=== PATIENT | female | born 1985 | race Caucasian/White ===

== ENCOUNTER 2016-09-28 07:59 | Emergency (ER) | payer SELFPAY ==
[2016-09-28] MEDS ORDERED: TETRACAINE HCL 0.5% OPH SOLN 2 ML OD ONE (10:00)
[2016-09-28] MEDS ORDERED: LORAZEPAM 1 MG TABLET PO ONE (10:25)
--- NOTE | 2016-09-28 12:09 | ER Document Report ---
ED Eye Complaint - General Chief Complaint: Eye Problem Stated Complaint: HEADACHE Time seen by provider: 12:04 Mode of Arrival: Ambulatory Information source: Patient Notes: 31 yo female non contact lense weared c/o right eye reddness she noticed this morning and a throbbin right frontal headache for 3 days that has been intermittent. Blurred vision to right eye this morning also. No hx htn, migraines. gradual onset of headaches, denies preganancy. 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 TRAVEL OUTSIDE OF THE [place] IN LAST 30 DAYS: No - Related Data Allergies/Adverse Reactions: Penicillins Allergy (Verified 09/28/16 08:11) Past Medical History - General Information source: Patient - Social History Smoking Status: Never Smoker Chew tobacco use (# tins/day): No Frequency of alcohol use: Social Drug Abuse: None Lives with: Spouse/Significant other Family History: Reviewed & Not Pertinent Patient has suicidal ideation: No Patient has homicidal ideation: No Renal/ Medical History: Denies: Hx Peritoneal Dialysis Psychiatric Medical History: Reports: Hx Anxiety Surgical Hx: Negative Review of Systems - Review of Systems Constitutional: No symptoms reported EENT: See HPI Cardiovascular: No symptoms reported Respiratory: No symptoms reported Gastrointestinal: No symptoms reported Genitourinary: No symptoms reported Female Genitourinary: No symptoms reported Musculoskeletal: No symptoms reported Skin: No symptoms reported Hematologic/Lymphatic: No symptoms reported Neurological/Psychological: See HPI Physical Exam - Vital signs Vitals: Temp Pulse Resp BP Pulse Ox 98.5 F 77 20 137/70 H 96 09/28/16 08:07 09/28/16 08:07 09/28/16 08:07 09/28/16 08:07 09/28/16 08:07 Interpretation: Normal - General General appearance: Appears well, Alert, Anxious - HEENT Head: Normocephalic, Atraumatic Eyes: Normal Conjunctiva: Other - subconjunctival hemorrhage medial right eye. no fb, no fluorescein uptake, pressure 14.95 (normal), opthalmic exam normal Cornea: No: Corneal abrasion, Embedded foreign body, Flourescein stain uptake, Opacified, Superficial foreign body Pupils: PERRL Visual acuity- Right eye: 20/50 Visual acuity- Left eye: 20/25 Visual acuity- Both eyes: 20/25 Corrective lenses worn: No Nerve palsy: No Tympanic membrane: Normal Mouth/Lips: Normal Mucous membranes: Normal Pharynx: Normal Neck: Normal, Supple. No: Lymphadenopathy - Respiratory Respiratory status: No respiratory distress Chest status: Nontender Breath sounds: Normal Chest palpation: Normal - Cardiovascular Rhythm: Regular Heart sounds: Normal auscultation Murmur: No - Abdominal Inspection: Normal Distension: No distension Bowel sounds: Normal Tenderness: Nontender Organomegaly: No organomegaly - Back Back: Normal, Nontender - Extremities General upper extremity: Normal inspection, Nontender, Normal color, Normal ROM , Normal temperature General lower extremity: Normal inspection, Nontender, Normal color, Normal ROM , Normal temperature, Normal weight bearing. No: Yumi's sign - Neurological Neuro grossly intact: Yes Cognition: Normal Orientation: AAOx4 [place] Coma Scale Eye Opening: Spontaneous [place] Coma Scale Verbal: Oriented Elvis Coma Scale Motor: Obeys Commands Elvis Coma Scale Total: 15 Speech: Normal Motor strength normal: LUE, RUE, LLE, RLE Sensory: Normal - Psychological Associated symptoms: Normal affect, Normal mood - Skin Skin Temperature: Warm Skin Moisture: Dry Skin Color: Normal Course - Re-evaluation Re-evalutation: 09/28/16 12:[address] is negative 09/28/16 12:05 right eye 20/50. left eye 20/25 09/28/16 12:06 Headache is better 09/28/16 12:[address] leija for disposition, ok to see eye doctor on saturday - Vital Signs Vital signs: Temp Pulse Resp BP Pulse Ox 97.6 F 71 20 124/70 100 09/28/16 12:08 09/28/16 12:08 09/28/16 08:07 09/28/16 12:08 09/28/16 12:08 Discharge - Discharge Clinical Impression: right eye sub Conjunctival hemorrhage, Anxiety Headache Qualifiers: Headache type: unspecified Headache chronicity pattern: episodic headache Intractability: not intractable Qualified Code(s): R51 - Headache Condition: Good Disposition: HOME, SELF-CARE Instructions: Subconjunctival Hemorrhage ([facility]), Headache ([facility]), Anxiety ([facility]), Dizziness ([facility]) Additional Instructions: to er if worse this weekend call and schedule opthamology appointment and neurology appointment rest Please complete the patient satisfaction survey if you get one, and return it.. If you do not receive a survey, then you can go to the [facility] website, [email or web address] and place your comments about your very good care. Thank you very much. It was a pleasure being your medical provider today. Forms: Return to Work Referrals: SUSHANT MCNEAL MD [ACTIVE STAFF] - Follow up as needed ERICKSON VALENTINO MD [ACTIVE STAFF] - Follow up as needed
[2016-09-28 12:10] VITALS: BP 124/70
== END 2016-09-28 12:15 | disposition home or self-care (01) ==
LOC: ER 07:59
DX: H11.31 Conjunctival hemorrhage, right eye (principal); R51 Headache; H53.8 Other visual disturbances; H53.149 Visual discomfort, unspecified; F41.9 Anxiety disorder, unspecified
CPT/HCPCS: 70450; 99284

== ENCOUNTER 2016-11-14 23:27 | Emergency (ER) | payer SELFPAY | END 2016-11-15 01:08 | disposition left against medical advice (07) | LOC: ER 23:27 | DX: Z53.21 Procedure and treatment not carried out due to patient leaving prior to being seen by health care provider (principal) ==

== ENCOUNTER 2017-01-12 18:41 | Emergency (ER) | payer SELFPAY ==
[2017-01-12] MEDS ORDERED: NORMAL SALINE 1000 ML 1,000 ML IV ONE (19:04)
[2017-01-12] MEDS ORDERED: LORAZEPAM INJ 2 MG/1 ML VIAL IV ONE (19:04)
--- NOTE | 2017-01-12 19:06 | ER Document Report ---
ED Medical Screen (RME) - General Chief Complaint: Weakness Stated Complaint: WEAKNESS Time Seen by Provider: 01/12/17 19:04 Mode of Arrival: Wheelchair Information source: Patient TRAVEL OUTSIDE OF THE [place] IN LAST 30 DAYS: No - HPI Patient complains to provider of: weakness Onset: This afternoon - Pt has h/o panic attacks took a new wt. loss pill (otc) called "Ripped" -- got very shaky and weak this afternoon with near syncope - Related Data Allergies/Adverse Reactions: Penicillins Allergy (Verified 01/12/17 18:47) Past Medical History Renal/ Medical History: Denies: Hx Peritoneal Dialysis Psychiatric Medical History: Reports: Hx Anxiety Physical Exam - Vital signs Vitals: Temp Pulse Resp BP Pulse Ox 98.3 F 77 18 139/97 H 100 01/12/17 18:46 01/12/17 18:46 01/12/17 18:46 01/12/17 18:46 01/12/17 18:46 Course - Vital Signs Vital signs: Temp Pulse Resp BP Pulse Ox 98.3 F 77 18 139/97 H 100 01/12/17 18:46 01/12/17 18:46 01/12/17 18:46 01/12/17 18:46 01/12/17 18:46
[2017-01-12 19:30] LABS: ABSOLUTE BASOPHILS # (AUTO) 0.1 10^3/uL (0.0-0.2); ABSOLUTE EOSINOPHILS # (AUTO) 0.1 10^3/uL (0.0-0.6); ABSOLUTE LYMPHOCYTES (AUTO) 3.6 10^3/uL (0.5-4.7); ABSOLUTE MONOCYTES (AUTO) 0.6 10^3/uL (0.1-1.4); BASOPHILS % (AUTO) 0.7 % (0-2); EOSINOPHILS % (AUTO) 1.4 % (0-6); HEMATOCRIT 38.6 % (36.0-47.0); HEMOGLOBIN 12.6 g/dL (12.0-15.5); HGB HCT DIFFERENCE -0.8; LYMPHOCYTES % (AUTO) 34.8 % (13-45); MEAN CORPUSCULAR HEMOGLOBIN 26.6 pg (27.0-33.4); MEAN CORPUSCULAR HGB CONC 32.7 g/dL (32.0-36.0); MEAN CORPUSCULAR VOLUME 81 fl (80-97); RED BLOOD COUNT 4.74 10^6/uL (3.72-5.28); RED CELL DISTRIBUTION WIDTH 15.2 % (11.5-14.0); SEGMENTED NEUTROPHILS % (AUTO) 57.1 % (42-78); WHITE BLOOD COUNT 10.5 10^3/uL (4.0-10.5)
[2017-01-12 19:52] LABS: ALANINE AMINOTRANSFERASE 31 U/L (9-52); ALBUMIN 4.3 g/dL (3.5-5.0); ALKALINE PHOSPHATASE 85 U/L (38-126); ANION GAP 11 (5-19); ASPARTATE AMINO TRANSFERASE 25 U/L (14-36); BILIRUBIN,DIRECT 0.3 mg/dL (0.0-0.4); BILIRUBIN,TOTAL 0.5 mg/dL (0.2-1.3); BLOOD UREA NITROGEN 13 mg/dL (7-20); CALCIUM 9.8 mg/dL (8.4-10.2); CARBON DIOXIDE 26 mmol/L (22-30); CHLORIDE 102 mmol/L (98-107); CREATININE RESULT 0.89 mg/dL (0.52-1.25); GLUCOSE 85 mg/dL (75-110); SODIUM 138.7 mmol/L (137-145); TOTAL PROTEIN 7.9 g/dL (6.3-8.2)
[2017-01-12 20:53] LABS: APPEARANCE,URINE CLEAR; BILIRUBIN,URINE NEGATIVE (NEGATIVE); GLUCOSE, URINE NEGATIVE (NEGATIVE); KETONES,URINE TRACE mg/dL (NEGATIVE); LEUKOCYTE ESTERASE,URINE NEGATIVE (NEGATIVE); NITRITE,URINE NEGATIVE (NEGATIVE); PROTEIN,URINE NEGATIVE (NEGATIVE); URINE SPECIFIC GRAVITY 1.005; UROBILINOGEN,URINE NEGATIVE mg/dL (<2.0)
--- NOTE | 2017-01-12 21:47 | ER Document Report ---
ED General - General Chief Complaint: Weakness Stated Complaint: WEAKNESS Time Seen by Provider: 01/12/17 19:04 Mode of Arrival: Wheelchair Notes: Patient is a 31-year-old female with past medical history of morbid obesity, anxiety and depression who presents after feeling weak, somewhat panicked while at work today. Patient states that she is concerned this may be related to a new medicine that she has begun taking [id number] for weight loss. At time of my assessment she states that her symptoms have now resolved after receiving IV lorazepam prior to my assessment. States she has had similar symptoms in the past with panic attacks. She notes that she felt "floppy and lightheaded" earlier but denies these symptoms at this time. Nothing apparently triggered her symptoms although she does admit that she has not eaten anything all day. She has not seen her primary care doctor regarding today's concerns. TRAVEL OUTSIDE OF THE [place] IN LAST 30 DAYS: No - Related Data Allergies/Adverse Reactions: Penicillins Allergy (Verified 01/12/17 18:47) Past Medical History - General Information source: Patient - Social History Smoking Status: Never Smoker Chew tobacco use (# tins/day): No Frequency of alcohol use: None Drug Abuse: None Lives with: Spouse/Significant other Family History: Reviewed & Not Pertinent Patient has suicidal ideation: No Patient has homicidal ideation: No Renal/ Medical History: Denies: Hx Peritoneal Dialysis Psychiatric Medical History: Reports: Hx Anxiety, Hx Depression - anxiety Past Surgical History: Reports: Hx Section, Hx Cholecystectomy Review of Systems - Review of Systems Notes: Constitutional: Negative for fever. HENT: Negative for sore throat. Eyes: Negative for visual changes. Cardiovascular: Negative for chest pain. Respiratory: Negative for shortness of breath. Gastrointestinal: Negative for abdominal pain, vomiting or diarrhea. Genitourinary: Negative for dysuria. Musculoskeletal: Negative for back pain. Skin: Negative for rash. Neurological: Negative for headaches, weakness or numbness. 10 point ROS negative except as marked above and in HPI. Physical Exam - Vital signs Vitals: Temp Pulse Resp BP Pulse Ox 98.3 F 77 18 139/97 H 100 01/12/17 18:46 01/12/17 18:46 01/12/17 18:46 01/12/17 18:46 01/12/17 18:46 Interpretation: Normal Notes: PHYSICAL EXAMINATION: GENERAL: Well-appearing, well-nourished and in no acute distress. HEAD: Atraumatic, normocephalic. EYES: Pupils equal round and reactive to light, extraocular movements intact, sclera anicteric, conjunctiva are normal. ENT: nares patent, oropharynx clear without exudates. Moist mucous membranes. NECK: Normal range of motion, supple without lymphadenopathy LUNGS: Breath sounds clear to auscultation bilaterally and equal. No wheezes rales or rhonchi. HEART: Regular rate and rhythm without murmurs ABDOMEN: Soft, nontender, normoactive bowel sounds. No guarding, no rebound. No masses appreciated. EXTREMITIES: Normal range of motion, no pitting or edema. No cyanosis. NEUROLOGICAL: No focal neurological deficits. Moves all extremities spontaneously and on command. PSYCH: Normal mood, normal affect. SKIN: Warm, Dry, normal turgor, no rashes or lesions noted. Course - Re-evaluation Re-evalutation: 01/12/17 21:45 Patient presents with multiple vague complaints that did not appear to be concerning for any acute life-threatening pathology. Appears that her symptoms are likely related to not eating all day. Vitals are within normal limits at triage and at time of discharge. Physical examination is unremarkable. Patient has tolerated oral intake without difficulty. Patient was not noted to be in distress at any point during their ER visit. At this time, based on the reassuring evaluation, I do not suspect an acute MS, pulmonary embolus, aortic dissection, acute intra-abdominal pathology, stroke, or sepsis.Will discharge with return precautions and follow-up recommendations. Verbal discharge instructions given a the bedside and opportunity for questions given. Medication warnings reviewed. Patient is in agreement with this plan and has verbalized understanding of return precautions and the need for primary care follow-up in the next 24-72 hours. - Vital Signs Vital signs: Temp Pulse Resp BP Pulse Ox 98.4 F 69 17 128/79 H 97 01/12/17 21:51 01/12/17 21:51 01/12/17 21:51 01/12/17 21:51 01/12/17 21:51 - Laboratory Result Diagrams: 01/12/17 19:20 01/12/17 19:20 Laboratory results interpreted by me: 01/12/17 01/12/17 19:20 20:37 MCH 26.6 L RDW 15.2 H Urine Ketones TRACE H Urine Blood SMALL H Discharge - Discharge Clinical Impression: Dehydration, Lightheadedness Condition: Good Disposition: HOME, SELF-CARE Additional Instructions: Please return to the emergency room immediately if you experience any concerning symptoms including high fevers, severe headache, chest pain, difficulty breathing, abdominal pain, slurred speech, numbness or weakness in your arms or legs, or any other symptom that concerns you. Forms: Parent Work Note, Return to Work
[2017-01-12 21:56] VITALS: BP 128/79
--- NOTE | 2017-01-13 09:54 | EKG REPORT ---
SEVERITY:- NORMAL ECG - SINUS RHYTHM : Confirmed by: Raymon Londono MD 13-Jan-2017 09:53:42
== END 2017-01-12 22:04 | disposition home or self-care (01) ==
LOC: ER 18:41
DX: E86.0 Dehydration (principal); R42 Dizziness and giddiness; R53.1 Weakness; E66.01 Morbid (severe) obesity due to excess calories; Z68.41 Body mass index [BMI] 40.0-44.9, adult; F41.9 Anxiety disorder, unspecified; Z88.0 Allergy status to penicillin
CPT/HCPCS: 93005; 99285; 96360; 36415; 85025; 81025; 80053; 81001; 93010; J7030

== ENCOUNTER 2017-08-07 09:15 | Emergency (ER) | payer BC ==
[2017-08-07] MEDS ORDERED: NORMAL SALINE 1000 ML 1,000 ML IV ONE ×2 (10:13→12:24)
[2017-08-07] MEDS ORDERED: ONDANSETRON HCL INJ/PF 4 MG/2 ML SDV IV ONE (10:13)
[2017-08-07] MEDS ORDERED: MORPHINE SULFATE 10 MG/ML INJ IV ONE ×2 (10:14→11:29)
[2017-08-07 10:52] LABS: ABSOLUTE BASOPHILS # (AUTO) 0.1 10^3/uL (0.0-0.2); ABSOLUTE EOSINOPHILS # (AUTO) 0.1 10^3/uL (0.0-0.6); ABSOLUTE LYMPHOCYTES (AUTO) 2.8 10^3/uL (0.5-4.7); ABSOLUTE MONOCYTES (AUTO) 0.5 10^3/uL (0.1-1.4); ABSOLUTE NEUT (AUTO) 6.1 10^3/uL (1.7-8.2); EOSINOPHILS % (AUTO) 1.2 % (0-6); HEMOGLOBIN 13.5 g/dL (12.0-15.5); LYMPHOCYTES % (AUTO) 29.3 % (13-45); MEAN CORPUSCULAR HEMOGLOBIN 27.2 pg (27.0-33.4); MEAN CORPUSCULAR HGB CONC 32.8 g/dL (32.0-36.0); MEAN CORPUSCULAR VOLUME 83 fl (80-97); MONOCYTES % (AUTO) 5.4 % (3-13); PLATELET COUNT 252 10^3/uL (150-450); RED BLOOD COUNT 4.95 10^6/uL (3.72-5.28); RED CELL DISTRIBUTION WIDTH 15.3 % (11.5-14.0); SEGMENTED NEUTROPHILS % (AUTO) 63.1 % (42-78); TOTAL CELLS COUNTED % (AUTO) 100 %; WHITE BLOOD COUNT 9.6 10^3/uL (4.0-10.5)
[2017-08-07 10:54] LABS: APPEARANCE,URINE SLIGHTLY-CLOUDY; BILIRUBIN,URINE NEGATIVE (NEGATIVE); COLOR,URINE YELLOW; GLUCOSE, URINE NEGATIVE (NEGATIVE); KETONES,URINE NEGATIVE (NEGATIVE); LEUKOCYTE ESTERASE,URINE NEGATIVE (NEGATIVE); NITRITE,URINE NEGATIVE (NEGATIVE); PROTEIN,URINE NEGATIVE (NEGATIVE); URINE SPECIFIC GRAVITY 1.025; UROBILINOGEN,URINE NEGATIVE mg/dL (<2.0)
--- NOTE | 2017-08-07 11:41 | RADIOLOGY REPORT (SQ) ---
EXAM DESCRIPTION: U/S ABDOMEN LIMITED W/O DOP COMPLETED DATE/TIME: 08/07/2017 11:33 am REASON FOR STUDY: ruq pain/ r/o cbd COMPARISON: None. TECHNIQUE: Dynamic and static grayscale images acquired of the abdomen and recorded on PACS. Additio nal selected color Doppler and spectral images recorded. LIMITATIONS: None. FINDINGS: PANCREAS: No masses. Visualized pancreatic duct normal caliber. LIVER: No masses. Echotexture normal. LIVER VASCULATURE: Normal blood flow is identified in the portal vein. GALLBLADDER: No stones. Normal wall thickness. No pericholecystic fluid. ULTRASOUND-DETECTED SWAIN'S SIGN: Negative. INTRAHEPATIC DUCTS AND COMMON DUCT: CBD and intrahepatic ducts normal caliber. No filling defects. INFERIOR VENA CAVA: Normal flow. AORTA: No aneurysm. RIGHT KIDNEY: 9.8 cm in length. Normal echogenicity. No solid or suspicious masses. No hydrone phrosis. No calcifications. PERITONEAL AND RIGHT PLEURAL SPACE: No ascites or effusions. OTHER: No other significant findings. IMPRESSION: NORMAL RIGHT UPPER QUADRANT ULTRASOUND. TECHNICAL DOCUMENTATION: JOB ID: [id number] [employer]- All Rights Reserved
[2017-08-07] MEDS ORDERED: HYDROMORPHONE HCL INJ/PF 2 MG/ML AMPULE IV ONE (12:04)
[2017-08-07 12:20] LABS: ALANINE AMINOTRANSFERASE 16 U/L (9-52); ALBUMIN 3.8 g/dL (3.5-5.0); ALKALINE PHOSPHATASE 60 U/L (38-126); ANION GAP 8 (5-19); ASPARTATE AMINO TRANSFERASE 13 U/L (14-36); BILIRUBIN,DIRECT 0.1 mg/dL (0.0-0.4); BILIRUBIN,TOTAL 0.2 mg/dL (0.2-1.3); BLOOD UREA NITROGEN 11 mg/dL (7-20); CALCIUM 8.9 mg/dL (8.4-10.2); CARBON DIOXIDE 27 mmol/L (22-30); CHLORIDE 107 mmol/L (98-107); GLUCOSE 83 mg/dL (75-110); LIPASE 88.4 U/L (23-300); POTASSIUM 4.2 mmol/L (3.6-5.0); TOTAL PROTEIN 6.8 g/dL (6.3-8.2)
--- NOTE | 2017-08-07 12:29 | ER Document Report ---
ED General - General Chief Complaint: Abdominal Pain Stated Complaint: ABDOMINAL PAIN Time Seen by Provider: 08/07/17 10:12 TRAVEL OUTSIDE OF THE [place] IN LAST 30 DAYS: No - HPI Patient complains to provider of: Right upper quadrant abdominal pain Onset: Just prior to arrival Onset/Duration: Intermittent - Morbidly obese 31-year-old female presents with right upper quadrant pain. Patient is status post cholecystectomy. Pain was so bad it made her throw up. All started this morning. States she has never had pain like this before. Denies fever chills or trauma to her abdomen. - Related Data Allergies/Adverse Reactions: Penicillins Allergy (Verified 08/07/17 09:16) Past Medical History - Social History Smoking Status: Never Smoker Chew tobacco use (# tins/day): No Frequency of alcohol use: None Drug Abuse: None Family History: Reviewed & Not Pertinent Patient has suicidal ideation: No Patient has homicidal ideation: No Renal/ Medical History: Denies: Hx Peritoneal Dialysis Psychiatric Medical History: Reports: Hx Anxiety, Hx Depression - anxiety Past Surgical History: Reports: Hx Section, Hx Cholecystectomy Review of Systems - Review of Systems Constitutional: No symptoms reported EENT: No symptoms reported Cardiovascular: No symptoms reported Respiratory: No symptoms reported Gastrointestinal: Abdominal pain, Nausea Genitourinary: No symptoms reported Female Genitourinary: No symptoms reported Musculoskeletal: No symptoms reported Skin: No symptoms reported Hematologic/Lymphatic: No symptoms reported Neurological/Psychological: No symptoms reported Physical Exam - Vital signs Vitals: Temp Pulse BP Pulse Ox 98.7 F 57 L 112/72 97 08/07/17 09:41 08/07/17 09:41 08/07/17 09:41 08/07/17 09:41 Interpretation: Normal - General General appearance: Appears well, Alert - HEENT Head: Normocephalic, Atraumatic Eyes: Normal Pupils: PERRL - Respiratory Respiratory status: No respiratory distress Chest status: Nontender Breath sounds: Normal Chest palpation: Normal - Cardiovascular Rhythm: Regular Heart sounds: Normal auscultation Murmur: No - Abdominal Inspection: Normal Distension: No distension Bowel sounds: Normal Tenderness: Tender. No: McBurney's point, Brito's sign Organomegaly: No organomegaly - Back Back: Normal, Nontender - Extremities General upper extremity: Normal inspection, Nontender, Normal color, Normal ROM , Normal temperature General lower extremity: Normal inspection, Nontender, Normal color, Normal ROM , Normal temperature, Normal weight bearing. No: Yumi's sign - Neurological Neuro grossly intact: Yes Cognition: Normal Orientation: AAOx4 [place] Coma Scale Eye Opening: Spontaneous Elvis Coma Scale Verbal: Oriented [place] Coma Scale Motor: Obeys Commands [place] Coma Scale Total: 15 Speech: Normal Motor strength normal: LUE, RUE, LLE, RLE Sensory: Normal - Psychological Associated symptoms: Normal affect, Normal mood - Skin Skin Temperature: Warm Skin Moisture: Dry Skin Color: Normal Course - Re-evaluation Re-evalutation: 08/07/17 14:10 Well-appearing female presents with right upper quadrant abdominal pain. Given IV opioid therapy feeling much improved. Reassuring physical exam. Extensive lab workup including ultrasound, CAT scan of the pelvis, chest x-ray, EKG, troponins and labs all within normal limits. Patient be discharged home follow-up with PCP return if anything changes given prescription for oral opioid therapy. - Vital Signs Vital signs: Temp Pulse Resp BP Pulse Ox 98.7 F 57 L 112/72 97 08/07/17 09:41 08/07/17 09:41 08/07/17 09:41 08/07/17 09:41 - Laboratory Result Diagrams: 08/07/17 10:40 08/07/17 11:40 Laboratory results interpreted by me: 08/07/17 08/07/17 10:40 11:40 RDW 15.3 H AST 13 L - EKG Interpretation by Me Additional EKG results interpreted by me: 08/07/17 13:37 Normal sinus rhythm 73 bpm, no ST elevations or depressions, normal intervals. Discharge - Discharge Clinical Impression: Abdominal pain Qualifiers: Abdominal location: generalized Qualified Code(s): R10.84 - Generalized abdominal pain Condition: Stable Disposition: HOME, SELF-CARE Instructions: Abdominal Pain ([facility]) Additional Instructions: See your PCP Prescriptions: Morphine Sulfate [Morphine Ir 15 Mg Tablet] 15 mg PO TID #9 tablet
--- NOTE | 2017-08-07 13:33 | RADIOLOGY REPORT (SQ) ---
EXAM DESCRIPTION: CT ABD/PELVIS WITH IV ONLY COMPLETED DATE/TIME: 08/07/2017 1:09 pm REASON FOR STUDY: abdominal pain COMPARISON: Abdominal 7 dated 08/07/2017 TECHNIQUE: CT scan of the abdomen and pelvis performed using helical scanning technique with dynamic intravenous contrast injection. No oral contrast. Images reviewed with lung, soft tissue, and bone windows. Reconstructed coronal and sagittal MPR images reviewed. Delayed images for evaluation of the urinary system also acquired. All images stored on PACS. All CT scanners at this facility use dose modulation, iterative reconstruction, and/or weight based d osing when appropriate to reduce radiation dose to as low as reasonably achievable (ALARA). [facility]: Dose Right [facility]: CareDose [facility]: Dose Right [facility]: Teradose 4D [facility]: BF [employer] CONTRAST TYPE AND DOSE: contrast/concentration: Isovue 370.00 mg/ml; Total Contrast Delivered: 100.0 ml; Total Saline Delivered: 72.0 ml RENAL FUNCTION: None required. The patient is less than 50 years old. RADIATION DOSE: CT Rad equipment meets quality standard of care and radiation dose reduction techniq ues were employed. CTDIvol: 20.2 - 21.0 mGy. DLP: 2364 mGy-cm.. LIMITATIONS: None. FINDINGS: LOWER CHEST: No significant findings. No nodules or infiltrates. LIVER: Normal size. No masses. Prominent intrahepatic bile ducts are identified presumably related t o the patient being in post cholecystectomy SPLEEN: Normal size. No focal lesions. PANCREAS: No masses. No significant calcifications. No adjacent inflammation or peripancreatic fluid collections. Pancreatic duct not dilated. GALLBLADDER: Status post cholecystectomy. ADRENAL GLANDS: No significant masses or asymmetry. RIGHT KIDNEY AND URETER: No solid masses. No significant calcifications. No hydronephrosis or hyd roureter. LEFT KIDNEY AND URETER: No solid masses. No significant calcifications. No hydronephrosis or hydr oureter. AORTA AND VESSELS: No aneurysm. No dissection. Renal arteries, SMA, celiac without stenosis. RETROPERITONEUM: No retroperitoneal adenopathy, hemorrhage or masses. BOWEL AND PERITONEAL CAVITY: No masses or inflammatory changes. No free fluid or peritoneal masses. APPENDIX: Normal. PELVIS: No mass. No free fluid. Normal bladder. ABDOMINAL WALL: No masses. No hernias. BONES: No significant or acute findings. OTHER: No other significant finding. IMPRESSION: NO SIGNIFICANT OR ACUTE FINDING IN THE ABDOMEN OR PELVIS ON CT SCAN WITH IV CONTRAST. TECHNICAL DOCUMENTATION: JOB ID: [id number] Quality ID # [id number]: Final reports with documentation of one or more dose reduction techniques (e.g., Au tomated exposure control, adjustment of the mA and/or kV according to patient size, use of iterative reconstruction technique) 2010 [employer]- All Rights Reserved
[2017-08-07 14:19] VITALS: BP 122/71
--- NOTE | 2017-08-07 21:23 | EKG REPORT ---
SEVERITY:- NORMAL ECG - SINUS RHYTHM : Confirmed by: Katelyn Merritt 07-Aug-2017 21:23:17
== END 2017-08-07 14:40 | disposition home or self-care (01) ==
LOC: ER 09:15
DX: R10.84 Generalized abdominal pain (principal); R11.0 Nausea; E66.01 Morbid (severe) obesity due to excess calories; Z90.49 Acquired absence of other specified parts of digestive tract
CPT/HCPCS: 93005; 96376; 99284; 96361; 96374; 96375; 36415; 83690; 85025; 81025; 80053; 81001; 84484; 76705; 74177; 93010; J2270; J1170; J2405; J7030